=== PATIENT | female | born 1975 | race Two or more races ===

== ENCOUNTER 2023-11-09 06:31 | Day surgery (SDC) | payer OTHER ==
[2023-11-01 15:08] VITALS: BP 101/70
[~2023-11-09] VITALS: Ht 167.6 cm; Wt 90.7 kg
[2023-11-09] MEDS ORDERED: CEFAZOLIN SODIUM 1,000 MG VIAL ONE (09:42)
[2023-11-09] MEDS ORDERED: BUPIVACAINE HCL/MPF 0.5% 30ML VIAL ONE (09:42)
[2023-11-09] MEDS ORDERED: BUPIVACAINE HCL/PF 0.25% 30ML VIAL InF ONE (10:30)
[2023-11-09] MEDS ORDERED: CEFAZOLIN SODIUM 1,000 MG VIAL IV ONE (10:30)
== END 2023-11-09 12:35 | disposition home or self-care (01) ==
LOC: CIR.AMB 06:31
PROVIDERS: ATTEND Surgery Surgery of the Hand
DX: D16.11 Benign neoplasm of short bones of right upper limb (principal); M67.441 Ganglion, right hand; Z88.6 Allergy status to analgesic agent